=== PATIENT | female | born 1965 | race African-American/Black ===

== ENCOUNTER 2019-03-07 22:29 | Inpatient (IN) | payer OTHER ==
[~2019-03-07] VITALS: Ht 167.6 cm; Wt 74.1 kg
[2019-03-07] MEDS ORDERED: EPINEPHrine 1:1,000 [1 MG/ML] AMP ONE (22:42)
[2019-03-07] MEDS ORDERED: MethylPREDNISolone SOD SUCC 125 MG/2 ML VIAL ONE (22:43)
[2019-03-07] MEDS ORDERED: EPINEPHrine 2 MG in DEXTROSE 5%-WATER 248 ML IV PRN (22:45)
[2019-03-07] MEDS ORDERED: SODIUM CHLORIDE 0.9% 1,000 ML IV ONE (23:00)
[2019-03-07] MEDS ORDERED: MethylPREDNISolone SOD SUCC 125 MG/2 ML VIAL IVP ONE (23:00)
[2019-03-07] MEDS ORDERED: GABA-531 PO (23:18)
[2019-03-07] MEDS ORDERED: LISI-661 PO (23:18)
[2019-03-07] MEDS ORDERED: LOSA25TA71 PO (23:18)
[2019-03-07] MEDS ORDERED: MULT-1103 PO (23:18)
[2019-03-07 23:21] LABS: BASOPHILS % (AUTO) 0.3 % (0.0-2.0); EOSINOPHILS % (AUTO) 0.9 % (1.0-6.0); HEMATOCRIT 42.1 % (36-46); HEMOGLOBIN 13.8 g/dL (12.0-16.0); LYMPHOCYTES # (AUTO) 1.7 K/uL (1.0-4.8); LYMPHOCYTES % (AUTO) 25.5 % (22.0-44.0); MEAN CORPUSCULAR HEMOGLOBIN 31.3 pg (26.0-34.0); MEAN CORPUSCULAR HGB CONC 32.8 G/dL (31.0-37.0); MEAN CORPUSCULAR VOLUME 96 fL (80-100); MONOCYTES # (AUTO) 0.4 K/uL (0.1-1.0); MONOCYTES % (AUTO) 5.4 % (2.0-9.0); NEUTROPHILS # (AUTO) 4.5 K/uL (1.8-7.7); NEUTROPHILS % (AUTO) 67.9 % (40.0-70.0); PLATELET COUNT (AUTO) 191 K/uL (150-450); RED BLOOD CELL COUNT(AUTO) 4.41 MIL/uL (4.00-5.20); RED CELL DISTRIBUTION WIDTH 14.4 % (11.5-14.5)
[2019-03-07 23:27] LABS: GLUCOSE,POINT OF CARE 153 MG/DL (70-110)
[2019-03-07 23:46] LABS: ALBUMIN 3.4 g/dL (3.4-5.0); BILIRUBIN,TOTAL 0.4 mg/dL (0.1-1.0); CALCIUM, TOTAL 8.4 mg/dL (8.8-10.5); CREATININE 1.37 mg/dL (0.60-1.30); THYROID STIMULATING HORMONE 1.24 uIU/mL (0.36-3.74); TOTAL PROTEIN, SERUM 6.3 g/dL (6.4-8.2)
[2019-03-08] MEDS: POTASSIUM CHL 10 MEQ/WATER 50 ML IV SCH ×2 (02:27→03:35)
[2019-03-08] MEDS ORDERED: DULO60CA44 PO (09:03)
[2019-03-08] MEDS ORDERED: TEMA15CA PO (09:03)
[2019-03-08] MEDS ORDERED: BUSP10TA23 PO (09:03)
[2019-03-08] MEDS ORDERED: HYDR-1475 PO (09:03)
[2019-03-08 15:49] VITALS: BP 158/100
[2019-03-08] MEDS ORDERED: ONDANSETRON HCL 4 MG/2 ML VIAL IVP PRN (18:30)
[2019-03-08] MEDS ORDERED: ALBUTEROL SULFATE 2.5 MG/0.5 ML NEB SOLUTION NEB PRN (18:30)
[2019-03-08] MEDS ORDERED: IPRATROPIUM BROMIDE 0.5 MG/2.5 ML NEB SOLUTION NEB PRN (18:30)
[2019-03-08] MEDS ORDERED: MAGNESIUM HYDROXIDE SUSPENSION 30 ML UDCUP PO PRN (18:30)
[2019-03-08] MEDS ORDERED: HYDROCODONE/ACETAMINOPHEN 5-325 MG TABLET PO PRN (18:30)
[2019-03-08] MEDS ORDERED: ACETAMINOPHEN 325 MG TABLET PO PRN (18:30)
[2019-03-08] MEDS ORDERED: MORPHINE SULFATE 2 MG/ML SYRINGE IVP PRN (18:30)
[2019-03-08] MEDS ORDERED: BISACODYL 10 MG RECTAL RECTAL SUPPOSITORY PR PRN (18:30)
[2019-03-08 19:36] VITALS: BP 143/89
[2019-03-08] MEDS: DOCUSATE SODIUM 100 MG CAPSULE PO SCH (20:03)
[2019-03-08] MEDS ORDERED: TEMAZEPAM 15 MG CAPSULE PO SCH (21:00)
[2019-03-08] MEDS ORDERED: FAMOTIDINE 20 MG TABLET PO ONE (21:30)
[2019-03-08] MEDS ORDERED: DiphenhydrAMINE HCL 25 MG CAPSULE PO PRN (21:30)
[2019-03-08] MEDS ORDERED: PredniSONE 20 MG TABLET PO ONE (21:30)
[2019-03-08 23:15] VITALS: BP 146/80
[2019-03-09 04:18] VITALS: BP 152/99
[2019-03-09 07:15] VITALS: BP 145/92
[2019-03-09 08:05] LABS: AMPHET/METH SCREEN,URINE NEGATIVE (NEGATIVE); BARBITURATE SCREEN, URINE NEGATIVE (NEGATIVE); BENZODIAZEPINES SCREEN,URINE NEGATIVE (NEGATIVE); CANNABINOID SCREEN,URINE NEGATIVE (NEGATIVE); COCAINE SCREEN,URINE NEGATIVE (NEGATIVE); METHADONE SCREEN, URINE NEGATIVE (NEGATIVE); OPIATE SCREEN,URINE NEGATIVE (NEGATIVE)
[2019-03-09 08:11] LABS: PHENCYCLIDINE SCREEN,URINE POSITIVE (NEGATIVE)
[2019-03-09] MEDS: DOCUSATE SODIUM 100 MG CAPSULE PO SCH (08:31)
[2019-03-09] MEDS ORDERED: HYDROCHLOROTHIAZIDE 25 MG TABLET PO SCH (09:00)
[2019-03-09] MEDS ORDERED: MULTIVITAMINS WITH MINERALS, THERAPEUTIC TABLET PO SCH (09:00)
[2019-03-09] MEDS ORDERED: GABAPENTIN 300 MG CAPSULE PO SCH (09:00)
[2019-03-09] MEDS ORDERED: BusPIRone HCL 10 MG TABLET PO SCH (09:00)
[2019-03-09] MEDS ORDERED: LOSARTAN POTASSIUM 25 MG TABLET PO SCH (09:00)
[2019-03-09] MEDS ORDERED: LISINOPRIL 10 MG TABLET PO SCH (09:00)
[2019-03-09] MEDS ORDERED: PredniSONE 20 MG TABLET PO SCH (09:00)
[2019-03-09] MEDS ORDERED: DULoxetine HCL 60 MG CAPSULE PO SCH (09:00)
[2019-03-09] MEDS ORDERED: FAMOTIDINE 20 MG TABLET PO SCH (09:00)
[2019-03-09] MEDS ORDERED: PRED20 PO (10:43)
[2019-03-09] MEDS ORDERED: PRED10 PO (10:44)
[2019-03-09] MEDS ORDERED: FAMO20 PO (10:45)
[2019-03-09] MEDS ORDERED: PRED5 PO (10:45)
== END 2019-03-09 11:40 | disposition home or self-care (01) | DRG 916 ==
LOC: EMS 22:32 → 5N 03-08 15:30
PROVIDERS: ADMIT Hospitalist; ATTEND Hospitalist
DX: T78.03XA Anaphylactic reaction due to other fish, initial encounter (principal); I10 Essential (primary) hypertension; F31.9 Bipolar disorder, unspecified; G47.00 Insomnia, unspecified; E87.6 Hypokalemia; Z98.84 Bariatric surgery status; Z91.041 Radiographic dye allergy status; Z87.892 Personal history of anaphylaxis; X58.XXXA Exposure to other specified factors, initial encounter; Y93.89 Activity, other specified; Y92.89 Other specified places as the place of occurrence of the external cause; Y99.8 Other external cause status
CPT/HCPCS: 84132; 84443; 99291; G0480; J0171; J2930; J3480; J7060